=== PATIENT | female | born 1960 | race Two or more races ===

== ENCOUNTER 2021-04-08 07:01 | Emergency (ER) | payer SELFPAY ==
[~2021-04-08] VITALS: Ht 152.4 cm; Wt 63.5 kg
[2021-04-08] MEDS ORDERED: EPINEPHrine HCL 1 MG/10 ML SYRG IV ONE (07:02)
[2021-04-08] MEDS ORDERED: SODIUM BICARBONATE 8.4% INJ 50ML SYRINGE IV ONE (07:02)
[2021-04-08] MEDS ORDERED: CALCIUM CHLOR(10%) 100MG/ML 10ML SYRINGE IV ONE (07:02)
[2021-04-08] MEDS ORDERED: DEXTROSE (50%) 50ML SYRG IV ONE (07:02)
[2021-04-08] MEDS ORDERED: AMIODARONE HCL (50 MG/ ML) 3 ML VIAL IV ONE (07:02)
[2021-04-08] MEDS ORDERED: SODIUM BICARBONATE 8.4% INJ 50ML SYRINGE ONE (07:18)
[2021-04-08] MEDS ORDERED: EPINEPHrine HCL 1 MG/10 ML SYRG ONE (07:21)
== END 2021-04-08 07:28 ==
LOC: ER 07:01 → EDBD 07:01 → ER 07:28
DX: I46.9 Cardiac arrest, cause unspecified (principal); J96.01 Acute respiratory failure with hypoxia; I10 Essential (primary) hypertension; E11.9 Type 2 diabetes mellitus without complications
CPT/HCPCS: 31500; 92950; 99285; J0171